=== PATIENT | female | born 1975 ===

== ENCOUNTER 2017-02-04 19:30 | Emergency (ER) | payer SELFPAY ==
[2017-02-04 19:37] VITALS: BP 120/71; PULSE 55; RESP 18; TEMP 98.5; O2SAT 99
--- NOTE | 2017-02-04 20:19 | ED PDOC ---
HPI: Abdomen Chief Complaint (Provider): diffuse abdominal discomfort History Per: Patient History/Exam Limitations: no limitations Onset/Duration Of Symptoms: Days (8 days) Outside of [place] travel?: No Current Symptoms Are (Timing): Intermittent Episodes Severity: Moderate Pain Scale Rating Of: 6 Location Of Pain/Discomfort: RUQ, Epigastric Quality Of Discomfort: Cramping Associated Symptoms: Nausea, Back Pain. denies: Fever, Vomiting, Diarrhea, Loss Of Appetite, Urinary Symptoms Exacerbating Factors: None Alleviating Factors: None Last Bowel Movement: Today Additional History Per: Patient Abnormal Vaginal Bleeding: Yes Last Menstral Period: 01/10/17 : 4 Para: 2 Miscarriage: 2 <Abdias Bell - Last Filed: 02/05/17 00:42> <Duncan Graves - Last Filed: 02/05/17 01:30> Chief Complaint (Nursing): Abdominal Pain Additional Complaint(s): 41 y/o presenting with 8 days of intermittent crampy abdominal pain. No alleviating or aggravating factors reported. Associated with mild nausea and mild vaginal spotting. No urinary symptoms, no abnormal vaginal discharge, h/o STIs. States unprotected intercourse with partner. No vomiting, diarrhea, hematochezia or melena. Denies f/c/ recent travel, consumption of exotic foods. 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: , no h/o STIs, D&C ( 2016), LMP:01/10/17, irregular periods reported PMH: denies PSH: D&C ( 2016) SH: no etoh, smoking, drugs (Abdias Bell) Supervising Attending Note - Supervising Attending Note The Documented history was done by the: Physician Development Disability Specialist, Attending Physician The documented physical exam was done by the: Physician Development Disability Specialist, Attending Physician The documented procedures were done by the: Physician Development Disability Specialist, Attending Physician - Attestation: I have personally seen and examined this patient.: Yes I have fully participated in the care of the patient.: Yes I have reviewed all pertinent clinical information: Yes <Duncan Graves - Last Filed: 02/05/17 01:30> Past Medical History - Medical History PMH: No Chronic Diseases - Family History Family History: States: Unknown Family Hx - Immunization History Hx Tetanus Toxoid Vaccination: No Hx Influenza Vaccination: No Hx Pneumococcal Vaccination: No <Abdias Bell Allison - Last Filed: 02/05/17 00:42> <Duncan Graves A - Last Filed: 02/05/17 01:30> Vital Signs: Last Vital Signs Temp 98.5 F 02/04/17 19:31 Pulse 55 L 02/04/17 19:31 Resp 18 02/04/17 19:31 BP 120/71 02/04/17 19:31 Pulse Ox 99 02/05/17 00:44 - Home Medications Home Medications: Ambulatory Orders Medication Instructions Recorded Ibuprofen [Motrin] 600 mg PO Q6 #20 tab 07/06/16 oxyCODONE/Acetaminophen [Percocet 1 ea PO Q6 PRN #5 tab 07/06/16 5/325 mg Tab] - Allergies Allergies/Adverse Reactions: Allergies Allergy/AdvReac Type Severity Reaction Status Date / Time No Known Allergies Allergy Verified 07/06/16 09:55 Review of Systems Constitutional: Negative for: Fever, Weakness Eyes: Negative for: Pain Cardiovascular: Negative for: Chest Pain Respiratory: Negative for: Cough, Shortness of Breath Gastrointestinal: Positive for: Nausea, Abdominal Pain. Negative for: Vomiting , Diarrhea, Constipation, Melena, Hematochezia, Hematemesis Genitourinary Female: Positive for: Vaginal Bleeding (vaginal spotting reported) . Negative for: Dysuria, Frequency, Incontinence, Hematuria, Vaginal Discharge , Pelvic Pain, Rash Skin: Negative for: Rash Neurological: Negative for: Weakness, Numbness <Abdias Bell F - Last Filed: 02/05/17 00:42> Physical Exam - Physical Exam Appears: Positive for: Well, No Acute Distress Head Exam: Positive for: ATRAUMATIC, NORMAL INSPECTION Skin: Positive for: Normal Color, Warm Eye Exam: Positive for: Normal appearance ENT: Positive for: Normal ENT Inspection Cardiovascular/Chest: Positive for: Regular Rate, Rhythm Respiratory: Positive for: Normal Breath Sounds Gastrointestinal/Abdominal: Positive for: Soft, Tenderness (RUQ mild enderness to palpation). Negative for: Distended, Guarding, Rebound, Asicites Back: Negative for: L CVA Tenderness, R CVA Tenderness Neurologic/Psych: Positive for: Alert, Oriented <Husnain,Abdias F - Last Filed: 02/05/17 00:42> - Laboratory Results Result Diagrams: 02/04/17 20:43 02/04/17 20:43 - ECG O2 Sat by Pulse Oximetry: 99 - Progress Re-evaluation Time: 21:34 Condition: Re-examined, Improved <Abdias Bell - Last Filed: 02/05/17 00:42> - Laboratory Results Result Diagrams: 02/04/17 20:43 02/04/17 20:43 <Duncan Graves A - Last Filed: 02/05/17 01:30> - Progress ED Course And Treament: RUQ abdominal pain cbc, cmp, lipase Gallbladder US Vaginal spotting Urine preg positive UA quant. BHCG TV US TVUS CLINICAL HISTORY: 41 years old, female; Signs and symptoms; Lmp or gestational age (in weeks): Lmp 12/23/2016; Other: Abd pain; ; Additional info: Abdominal pain, + urine preg TECHNIQUE: Real-time transvaginal obstetrical ultrasound of the maternal pelvis and a first trimester with image documentation. Transvaginal imaging was used for better evaluation of the fetus and adnexa. COMPARISON: No relevant prior studies available. FINDINGS: Gestation: A single intrauterine gestational sac is identified with a mean gestational sac size measuring 2.8 cm, corresponding to an approximate gestational age of 7 weeks and 4 days. The crown-rump length measures 13 mm, corresponding to an approximate gestational age of 7 weeks and 4 days. cardiac activity is identified at a rate of 129 beats per minute. Placenta/amniotic fluid: Cannot be adequately evaluated due to the early gestational age. Uterus/cervix: As above. Ovaries: Unremarkable in echogenicity and size. No mass. Free fluid: No free fluid. IMPRESSION: Single intrauterine gestation with an approximate gestational age of 7 weeks and 4 days. cardiac activity is identified. Gallbladder US EXAM: US Abdomen Limited, Right Upper Quadrant CLINICAL HISTORY: 41 years old, female; Pain; Abdominal pain; Epigastric; ; Additional info: Ruq abdominal pain TECHNIQUE: Real-time ultrasound of the right upper quadrant with image documentation. COMPARISON: No relevant prior studies available. FINDINGS: Liver: No acute findings. No mass. No intrahepatic bile duct dilation. Gallbladder: No acute findings. No gallstones. Common bile duct: No stones. No dilation. Pancreas: Visualization of the pancreas is limited by overlying bowel gas. Right kidney: No acute findings. No obstructing stones. No solid mass. No hydronephrosis. IMPRESSION: Unremarkable sonographic evaluation of the right upper quadrant, as detailed above. Limited evaluation of the pancreas, secondary to overlying bowel gas. (Abdias Bell) Disposition - Patient ED Disposition Is Patient to be Admitted: No - Disposition Disposition: Routine/Home <Abdias Bell - Last Filed: 02/05/17 00:42> - Patient ED Disposition Is Patient to be Admitted: No Doctor Will See Patient In The: Office Counseled Patient/Family Regarding: Studies Performed, Diagnosis, Need For Followup - Disposition Disposition: Routine/Home Disposition Time: 00:36 <Duncan Graves - Last Filed: 02/05/17 01:30> - Clinical Impression Clinical Impression: Abdominal pain during - Disposition Referrals: Devyn Cisneros MD [Staff Provider] - Condition: GOOD Additional Instructions: Take tylenol for pain. Follow up with your PCP in 2-3 days. Instructions: Abdominal Pain in (ED) Print Language: LUXEMBOURGER
[2017-02-04 20:51] LABS: HEMATOCRIT 34.2 % (34.0-47.0); MEAN CELL VOLUME 88.4 fl (81.0-99.0); MEAN CORPUSCULAR HEMOGLOBIN 29.3 pg (27.0-31.0); MEAN CORPUSCULAR HGB CONC 33.1 g/dL (33.0-37.0); RED CELL DISTRIBUTION WIDTH 13.1 % (11.5-14.5); WHITE BLOOD COUNT 11.7 K/uL (4.8-10.8)
[2017-02-04 21:01] LABS: ALB/GLOB RATIO 1.3 (1.0-2.1); BLOOD UREA NITROGEN 10 mg/dl (7-17); CHLORIDE 104 mmol/L (98-107); GFR AFRICAN-AMERICAN > 60; POTASSIUM 3.6 MMOL/L (3.6-5.0); SODIUM 137 mmol/l (132-148); TOTAL PROTEIN 7.3 G/DL (6.3-8.2)
[2017-02-04 21:11] LABS: RBC URINE 2 /hpf (0-3); URINE BACTERIA RARE (<OCC); URINE BILIRUBIN NEGATIVE (NEGATIVE); URINE BLOOD NEGATIVE (NEGATIVE); URINE COLOR YELLOW (YELLOW); URINE GLUCOSE (UA) NEG (Normal); URINE KETONE NEGATIVE (NEGATIVE); URINE LEUKOCYTE ESTERASE NEG Leu/uL (Negative); URINE PROTEIN NEGATIVE (NEGATIVE); URINE UROBILINOGEN 0.2-1.0 mg/dL (0.2-1.0); WBC URINE 1 /hpf (0-5)
[2017-02-04 21:56] LABS: ALKALINE PHOSPHATASE 68 U/L (38-126); ALT/SGPT 66 U/L (9-52); AST/SGOT 51 U/L (14-36); BILIRUBIN,TOTAL 0.3 mg/dl (0.2-1.3); CALCIUM 8.8 mg/dL (8.4-10.2); CARBON DIOXIDE 22 mmol/L (22-30); GLUCOSE,RANDOM 86 mg/dL (65-105); LIPASE 83 U/L (23-300)
--- NOTE | 2017-02-05 12:30 | US ---
HISTORY: RUQ abdominal pain COMPARISON: None. TECHNIQUE: Sonographic evaluation of the right upper quadrant of the abdomen. FINDINGS: LIVER: Measures approximately 14.6 cm in CC dimension. Smooth contour and normal theNormal echogenicity of the liver parenchyma. No mass. No intrahepatic bile duct dilatation. GALLBLADDER: Gallbladder is physiologically distended. No evidence of intraluminal gallbladder calculi. No pericholecystic fluid collections or sonographic Woodard sign. The in COMMON BILE DUCT: Measures approximately 3.3 mm. . No significant dilatation or intraductal stones seen. PANCREAS: Unremarkable as visualized. No mass. No ductal dilatation. RIGHT KIDNEY: Measures approximately 11.4 x 5.2 x 5.5 cm in length. Normal echogenicity. No calculus, mass, or hydronephrosis. AORTA: No aneurysmal dilatation. IVC: Unremarkable. OTHER FINDINGS: None . IMPRESSION: No evidence of cholelithiasis or acute cholecystitis. The
--- NOTE | 2017-02-05 16:52 | US ---
OB ultrasound dated 02/04/2017. History: Abdominal pain. Urine test positive. Transabdominal/transvaginal sonographic evaluation of the pelvis performed. The uterus is anteverted measuring approximately 10.5 x 5.8 x 7.7 cm. No myometrial masses. There is an intrauterine gestational sac. Measurements: Gestational sac: MSD = 2.8 cm = 7 weeks 4 days Yolk sac: 5.3 mm pole: 1.31 cm = 7 weeks 4 days Heart motion: 129 BPM Average ultrasound age: 7 weeks 4 days +/-0 weeks 4 days Right ovary measures approximately 2.4 x 1.8 x 2.4 cm. Right ovary exhibits arterial flow. Left ovary measures 2.9 x 2.1 x 1.8 cm and also exhibits arterial flow Impression: Early living intrauterine gestation at approximately 7 weeks 4 days +/-0 weeks 4 days. Heart rate documented at 1:29 BPM
== END 2017-02-05 00:46 | disposition home or self-care (01) ==
LOC: H.ER 19:30
DX: O26.899 Other specified pregnancy related conditions, unspecified trimester (principal); R11.0 Nausea; M54.9 Dorsalgia, unspecified

== ENCOUNTER 2017-09-12 07:38 | Inpatient (IN) | payer MEDICAID ==
[2017-09-12 07:44] VITALS: BMI 32.7
[2017-09-12] MEDS ORDERED: Lactated Ringer's 1,000 ML IV SCH ×3 (07:45→19:30)
[2017-09-12] MEDS ORDERED: ceFAZolin IV 2 gm in Dextrose 2 GM/50 ML BAG IVPB ONE (07:48)
[2017-09-12] MEDS: Lactated Ringer's 1,000 ML IV SCH ×5 (08:00→12:38)
[2017-09-12 09:12] LABS: BASO % 0.3 % (0.0-2.0); EOS # 0.2 K/uL (0.0-0.7); EOS % 1.6 % (0.0-4.0); HEMOGLOBIN 12.3 g/dL (12.0-16.0); LYMPH # 2.1 K/uL (1.0-4.3); LYMPH % 18.6 % (20.0-40.0); MEAN CELL VOLUME 87.1 fl (81.0-99.0); MEAN CORPUSCULAR HEMOGLOBIN 28.3 pg (27.0-31.0); MEAN CORPUSCULAR HGB CONC 32.4 g/dL (33.0-37.0); MEAN PLATELET VOLUME 9.9 fl (7.2-11.7); MONO # 0.6 K/uL (0.0-0.8); MONO % 4.9 % (0.0-10.0); NEUT # 8.6 K/uL (1.8-7.0); NEUT % 74.6 % (50.0-75.0); NRBC % 0.7 % (0.0-0.0); RBC 4.37 Mil/uL (3.80-5.20); RED CELL DISTRIBUTION WIDTH 13.3 % (11.5-14.5); WHITE BLOOD COUNT 11.5 K/uL (4.8-10.8)
[2017-09-12] MEDS: Oxytocin 30 UNITS in Sodium Chloride 0.9% 500 ML IV SCH ×8 (09:16→12:40)
[2017-09-12] MEDS ORDERED: Morphine 1 mg/ml preservative-free Inj(Duramorph) ONE (10:46)
[2017-09-12] MEDS ORDERED: Oxycodone/Acetaminophen 5/325 mg Tab PO PRN ×2 (12:11→12:53)
--- NOTE | 2017-09-12 12:21 | OBADHP ---
Datetime: 09/12/2017 08:00 Admit Comment, IP Provider: 41 ega 39.0 with christiano 09/19/2016 based on US (02/04/2017) presents for scheduled c/s 2/2 breech/transverse presentation. positive: FM, Denies: VB, LOF, CTX, CP/SOB/N/V/dysuria PNC: Dr. Miles obhx: x2 full term uncomplicated gyne: denies hx of sti; pap neg medhx: none famhx: none surg: none soc: denies smoking, alcohol, illicit drugs rx: pnv NKDA AAOX3 cardiac: s1s2 no murmurs lungs: clear bilaterally, no wheezing abdo: gravid, nontender bedside ultrasound: Transferse lie with cephalic in R side of abdomen gbs: neg; O- ab-; hiv neg; rpr neg; gc/c neg; rubella immune; hbsag: neg, ppd: 03/08/2017; tdap 41 yo IUP 39.0 -admit for scheduled section 2/2 breech/transverse presentation -Labs: cbc/ts, lr, ancef 2 gm -Pt is Rh negative; Rhogam administered at [address] MilesMaggie Saini MD PGY1 Agree with above H+P Pelvic Type - PN: Adequate Extremities - PN: Normal Abdomen - PN: Normal Back - PN: Normal Breast - PN: Not Done Lungs - PN: Normal Heart - PN: Normal Thyroid - PN: Not Done Neurologic - PN: Normal HEENT - PN: Normal General - PN: Normal FHR - Baseline A Provider: 140 Vital Signs Provider: Reviewed; Within Normal Limits IP Chief Complaint: Scheduled Section NICHD Variability Prov Fetus A: Moderate 6-25bpm NICHD Accel Fetus A IP Provider: [id number] FHR Category Provider Fetus A: Category I NICHD Decel Fetus A IP Provider: None Genitourinary Exam: Normal DTRs - PN: Not Done IP Adm Impression: Term, intrauterine IP Admit Plan: Admit to unit; Initiate Section protocol
--- NOTE | 2017-09-12 12:24 | OBDS ---
DELIVERY PERSONNEL Delivery Doctor: Jennifer Cisneros MD Scrub Nurse: Lorraine Gonzalez Anesthesiologist: MD josué Resident: MD vic MATERNAL INFORMATION Delivery Anesthesia: Spinal Medications in Delivery: Pitocin Estimated Blood Loss (ml): 800 Placenta Cultured: No Maternal Complications: None RN Comments: Atraumatic primary of viable baby boy with Lusty cry. assessed by Dr. George assigned 7/9 APGARs. compensated quickly Mother tolerated delivery well. Skin to skin intiated shortly after Provider Comments: Please see OR delivery note. Primary csection performed for malpresentation Live male delivered in Breech presentation 3350gms APGARS 8 9. Baby delivered at 11:26 am. LABOR SUMMARY EDC: 09/19/2017 00:00 No. Babies in Womb: 1 Attempted: No Labor Anesthesia: Spinal LABOR INFORMATION Reason for Induction: Not Applicable Oxytocin: N/A Group B Beta Strep: Negative (Annotations: 08/23/2017) Antibiotics # of Doses: 1 Antibiotics Time of Last Dose: 1040 Steroids Given: None Reason Steroids Not Administered: Not Applicable Other Reason Not Administered: Not required MEMBRANES Membranes Rupture Method: Artificial Rupture of Membranes: 09/12/2017 11:25 Length of Rupture (hrs): 0.02 Amniotic Fluid Color: Clear Amniotic Fluid Amount: Moderate Amniotic Fluid Odor: Normal STAGES OF LABOR Stage 3 hrs: 0 Stage 3 min: 1 CSECTION DELIVERY Primary Indication: Transverse/Complex Presentation Other Primary Indication: malposition Secondary Indication: N/A CSection Urgency: Elective CSection Incidence: Primary CSection Incision: Lower Uterine Transverse BABY A INFORMATION Infant Delivery Date/Time: 09/12/2017 11:26 Method of Delivery: Born in Route : No : N/A Forceps: N/A Vacuum Extraction: N/A Shoulder Dystocia : No SHOULDER DYSTOCIA BABY A Delivery Date/Time: 09/12/2017 11:26 PRESENTATION/POSITION BABY A Presentation: Other Cephalic Presentation: N/A Breech Presentation: Complete PLACENTA INFORMATION BABY A Placenta Delivery Time : 09/12/2017 11:27 Placenta Method of Delivery: Manual Removal Placenta Status: Delivered SCORES BABY A Heart Rate 1 min: >100 bpm Resp Effort 1 min: Good Cry Reflex Irritability 1 min: Cough or Sneeze or Pulls Away Muscle Tone 1 min: Some Flexion of Extremities Color 1 min: Blue/Pale Resuscitation Effort 1 min: N/A SCORE 1 MIN: 7 Heart Rate 5 min: >100 bpm Resp Effort 5 min: Good Cry Reflex Irritability 5 min: Cough or Sneeze or Pulls Away Muscle Tone 5 min: Active Motion Color 5 min: Body Arion, Extremities Blue Resuscitation Effort 5 min: N/A SCORE 5 MIN: 9 INFANT INFORMATION BABY A Gestational Age at Delivery: 39.0 Gestational Status: Term Infant Outcome : Liveborn Condition : Stable Sex: Male IDENTIFICATION/MEDS BABY A ID Band Number: [id number] ID Band Location: Right Leg; Right Arm WEIGHT/LENGTH BABY A Birthweight (gms): 3550 Weight (lb): 7 Weight (oz): 13 Infant Length Inches: 20.00 Infant Length cms: 50.8 CORD INFORMATION BABY A No. Cord Vessels: 3 Nuchal Cord : N/A Cord Blood Taken: No Infant Suction: Mouth; Nose ASSESSMENT BABY A Complications: Other Complications Other: had decreased Flexion and was blue ambubag used baby compensated quickly Physical Findings at Delivery: Bruising Physical Findings Other: Small bruise noted on right lateral side of of right eye. Respirations: Appears Normal Latin American Studies Professor/ALS Called : No Infant Care By: Dr George Transferred To: Remains with Mother
[2017-09-12] MEDS ORDERED: DiphenhydrAMINE 50 mg/ml Inj IVP PRN (12:53)
[2017-09-12] MEDS ORDERED: Morphine 1 mg/ml preservative-free Inj(Duramorph) IT ONE (12:53)
[2017-09-12] MEDS ORDERED: Naloxone 0.4 mg/ml Inj (Adult) IVP PRN (12:53)
[2017-09-12] MEDS ORDERED: Sodium Chloride 0.9% 1,000 ML IV SCH (13:00)
[2017-09-12] MEDS: Simethicone 80 mg Chewtab PO SCH (22:03)
--- NOTE | 2017-09-12 22:33 | OP ---
PROCEDURE DATE: 09/12/2017 PREOPERATIVE DIAGNOSIS: Term at 39 weeks with malpresentation. POSTOPERATIVE DIAGNOSIS: Term at 39 weeks with malpresentation, delivered. PROCEDURE: Primary low transverse section. SURGEON: Devyn Kelly MD. COMMUNICATION SPEC: Vick Yeung MD. ESTIMATED BLOOD LOSS: 800 mL. URINE OUTPUT: 175 mL, clear at the end of procedure. INTRAVENOUS FLUIDS: 1500 mL of Lactated Ringer's and Pitocin. TYPE OF ANESTHESIA: Spinal. COMPLICATIONS: None. CLOSURE: Subcuticular. FINDINGS: A live male with Apgars of 8 and 9 weighing 3350 g, delivered in breech presentation at 11:26 p.m., amniotic fluid clear, grossly normal tubes, ovaries and uterus. DESCRIPTION OF PROCEDURE: The patient was taken to the operating room, given spinal anesthesia without difficulty. She was then prepped and draped in the normal supine position with a leftward tilt. A Pfannenstiel skin incision was then made with a scalpel and carried to the underlying fascia with a Bovie. The fascia was incised in midline. The incision was then extended laterally with the Bovie. The inferior aspect of the fascial incision was grasped with Makenna clamps, elevated and the underlying rectus muscles were dissected off with the Bovie then bluntly. Attention was then turned to the superior aspect of the fascial incision fascia was dissected off with the Bovie then bluntly. The rectus muscles were meticulously in the midline. The peritoneum was identified, tented up and entered with Metzenbaum scissors. This incision was then extended laterally, superiorly and inferiorly paying close attention to the bladder. The bladder blade was inserted. The vesicouterine peritoneum was identified, tented up and entered with Metzenbaum scissors. This incision was extended laterally and a bladder flap was created digitally. The bladder blade was reinserted. The lower uterine segment was identified and entered in transverse fashion with a scalpel. This incision was then extended laterally using bandage scissors and the infant was delivered in breech presentation atraumatically. The nose and mouth were suctioned on the abdomen. The cord was doubly clamped and cut. The infant was handed off to the awaiting ferruler. Cord blood was then taken. The placenta was extracted spontaneously and intact. The uterus was exteriorized and cleared of all clots and debris. The uterine incision was then closed with 1 Vicryl in a running locking fashion and 2 further [id number] sutures were then placed and good hemostasis was noted. Copious irrigation was performed. The uterus was returned to the abdomen. The gutters were cleared off all clots. The inspection of the uterine incision again revealed good hemostasis. The peritoneum was then closed with 2-0 Vicryl in a running fashion and 3 further horizontal mattress sutures were then placed in the muscle for reapproximation. The fascia was re-approximated with 0 Vicryl bilaterally to the midline and the Bovie was used to obtain good hemostasis on the subcutaneous fat. This layer was then also closed with 4 interrupted sutures and the skin was closed with a 3-0 Monocryl and a Harvey needle for subcuticular stitch. The incision was covered with Steri-Strips and a sterile dressing. The patient tolerated the procedure well. Sponge, lap and needle counts were correct x4. Ancef 2 g was given preoperatively. The patient was then taken to the recovery room in stable condition. There was no injury to the bladder, bowel, ureter or baby. Due to the nature of this case, an research study assistant was requested. Myself and Dr. Yeung was present from the initial incision to the patient's transfer to the recovery room. He assisted with entry into the abdominal cavity, delivery of the baby, closure of all layers of the abdominal wall and in providing good exposure to ensure good hemostasis and minimize blood loss. This procedure could not have been performed without his assistance. Devyn Kelly MD
[2017-09-13] MEDS: Simethicone 80 mg Chewtab PO SCH ×4 (05:41→22:26)
[2017-09-13 06:41] LABS: HEMOGLOBIN 11.1 g/dL (12.0-16.0); MEAN CELL VOLUME 87.5 fl (81.0-99.0); MEAN CORPUSCULAR HEMOGLOBIN 28.3 pg (27.0-31.0); MEAN CORPUSCULAR HGB CONC 32.4 g/dL (33.0-37.0); RBC 3.91 Mil/uL (3.80-5.20); RED CELL DISTRIBUTION WIDTH 13.3 % (11.5-14.5); WHITE BLOOD COUNT 15.4 K/uL (4.8-10.8)
--- NOTE | 2017-09-13 10:41 | OBPPN ---
Datetime: 09/13/2017 06:15 PP Pain Prov: Within normal limits PP Nausea Prov: Denies PP Flatus Prov: Yes PP BM Prov: No PP Breasts Prov: Not Done PP Heart Prov: Normal PP Lungs Prov: Normal PP Abdomen/Uterus Prov: Normal PP Lochia Prov: Normal PP Vulva/Perineum Prov: Not Done PP CVA Tenderness Prov: Not Done PP Extremities Prov: Normal PP C/S Incision Prov: Normal PP Progress Prov: Normal PP Impression Prov: Normal progression PP Plan Prov: Continue present management PP Progress Note Prov: 41 yo s/p . Pt. is seen and examined at bedside this morning . No overnight events. Pt reports mild abdominal pain, but well controlled with pain meds. [place]wood d/c. Dressing to be removed. Advised to advance diet as tolerated. Breast and formula feeding without dif ficulty. Lochia is similar to menses volume. No BM but passing gas per rectum. Denies fever/chills, d iarrhea, nausea/vomiting, chest pain, dyspnea, and dizziness. VS: stable Gen: NAD Cardio: s1s2, no m/r/g Resp: clear breath sounds b/l Abdomen: BS+, tenderness to palpation. Dressing clean, intact. Uterus is firm and at the level of the umbilicus. Ext: No edema, calves nontender Neuro/Psych: AAOx3, no grossly focal deficit, preserved affect and mood. A/P: 41 yo s/p . Pt remains afebrile, tolerating pain with medication, doing well on POD 1. OOB with caution SCDs for DVT prophylaxis, encouraged ambulating Percocet 5/325mg and Ibuprofen 600mg for pain. Colace 100mg PO BID for constipation Encourage . PP CBC: pending. Anticipated d/c: 09/15/17 YBecerra PGY1 Patient was seen with the resident I agree with the note IP PP Procedures: None (Annotations: Data stored by CPN on behalf of user) Vital Signs Provider PP: Reviewed; Within Normal Limits
[2017-09-14] MEDS: Simethicone 80 mg Chewtab PO SCH ×4 (04:45→22:05)
[2017-09-15] MEDS: Simethicone 80 mg Chewtab PO SCH (04:05)
--- NOTE | 2017-09-15 10:15 | OBDCSUM ---
Datetime: 09/15/2017 06:14 Discharged to, Provider: Home Follow up at, Provider: Dr Miles Disch Instr Activity: May Shower Disch Instr Diet: Regular Discharge Instructions, Provider: Routine instructions given Discharge Diagnosis, Provider: Term Delivered Discharge Time: 09/15/2017 10:00 Follow up in weeks, Provider: 1 week Disch Referrals: None Contraception discussed, Prov: Yes Disch Activity Restrictions: No exercising; No lifting; Minimize walking; Minimize stair-climbing; N o sexual activity; Nothing in vagina - [place], tampons, douche Discharge Comment, Provider: DOA: 09/12/17 EGA: 39.0 weeks Diagnosis: PRisk factors: none Summary of : L_D summary: DOL: 09/12/2017 at 11:26 NB: M : 7/9 Weight: 3550 g PP summary: No serious complications during PP. Lochia= menses, mild pain, controlled with medications Rubella immune Blood type: O+ CBC pp: 11.34.2 Discharge Date: 09/15/2017 at 10 am Discharge Instructions: -encourage -Ibuprofen/percocet for pain PRN -Iron daily for anemia -Colace for constipation -Ambulate as tolerated -f/u NB visit and PP visit Contraception after Delivery: Undecided
--- NOTE | 2017-09-15 10:15 | OBPPN ---
Datetime: 09/15/2017 06:12 PP Pain Prov: Within normal limits PP Nausea Prov: Denies PP Flatus Prov: Yes PP BM Prov: Yes PP Breasts Prov: Not Done PP Heart Prov: Normal PP Lungs Prov: Normal PP Abdomen/Uterus Prov: Normal PP Lochia Prov: Normal PP Vulva/Perineum Prov: Not Done PP CVA Tenderness Prov: Not Done PP Extremities Prov: Normal PP C/S Incision Prov: Normal PP Progress Prov: Normal PP Impression Prov: Normal progression PP Plan Prov: Discharge PP Progress Note Prov: 41 yo s/p . Pt. is seen and examined at bedside this morning . No overnight events. Pt reports mild abdominal pain, but well controlled with pain meds. Tolerating PO well. Breast and formula feeding without difficulty. Lochia is similar to menses volume. + BM . D enies fever/chills, diarrhea, nausea/vomiting, chest pain, dyspnea, and dizziness. VS: stable Gen: NAD Cardio: s1s2, no m/r/g Resp: clear breath sounds b/l Abdomen: BS+, tenderness to palpation. Dressing clean, intact. Uterus is firm and at the level of the umbilicus. Ext: No edema, calves nontender Neuro/Psych: AAOx3, no grossly focal deficit, preserved affect and mood. A/P: 41 yo s/p . Pt remains afebrile, tolerating pain with medication, doing well on POD 3. OOB with caution SCDs for DVT prophylaxis, encouraged ambulating Percocet 5/325mg and Ibuprofen 600mg for pain. Colace 100mg PO BID for constipation Encourage . PP CBC: 11.1/34.2 Discharge today. YBecerra PGY1 Addendum by Dr. Garcia: Patient evaluated independently and I agree with the above. Patient for dis charge, discharge instructions reviewed IP PP Procedures: None Vital Signs Provider PP: Reviewed; Within Normal Limits
[2017-09-15 22:17] VITALS: BP 104/65; PULSE 76; RESP 20; TEMP 98; O2SAT 98
== END 2017-09-15 18:00 | disposition home or self-care (01) | DRG 371 ==
LOC: H.L&D 07:45 → H.OB/GYN 15:19
PROVIDERS: ADMIT Obstetrics & Gynecology; ATTEND Obstetrics & Gynecology
PROC: 10D00Z1 Extraction of Products of Conception, Low, Open Approach (ICD-10-PCS; principal; 2017-09-12)
PROC: 4A1HXCZ Monitoring of Products of Conception, Cardiac Rate, External Approach (ICD-10-PCS; 2017-09-12)
DX: O32.1XX0 Maternal care for breech presentation, not applicable or unspecified (principal); K59.00 Constipation, unspecified; Z37.0 Single live birth; Z3A.39 39 weeks gestation of pregnancy; O32.2XX0 Maternal care for transverse and oblique lie, not applicable or unspecified